=== PATIENT | female | born 1970 | race Caucasian/White ===

== ENCOUNTER 2019-07-02 16:03 | Emergency (ER) | payer BC ==
[~2019-07-02] VITALS: Ht 167.6 cm; Wt 69.9 kg
[2019-07-02 16:14] VITALS: BP 99/53
== END 2019-07-02 19:48 | disposition left against medical advice (07) ==
LOC: ER 16:03
DX: M25.561 Pain in right knee (principal); Z53.21 Procedure and treatment not carried out due to patient leaving prior to being seen by health care provider
CPT/HCPCS: 93971